=== PATIENT | female | born 1995 | race Caucasian/White ===

== ENCOUNTER 2019-06-21 09:23 | Emergency (ER) | payer OTHER ==
[~2019-06-21] VITALS: Ht 149.9 cm; Wt 50.9 kg
[2019-06-21 09:31] VITALS: BP 127/85; TEMP 98.1
[2019-06-21 09:57] LABS: COLLECTION METHOD CLEAN CATCH
[2019-06-21 10:14] LABS: MUCOUS Present /lpf; PH 5 (5-8); URINE APPEARANCE Hazy; URINE BACTERIA None Seen /hpf; URINE BILIRUBIN Negative (NEGATIVE); URINE BLOOD Negative (NEGATIVE); URINE COLOR Yellow; URINE GLUCOSE Negative (NEGATIVE); URINE KETONE 2+ (NEGATIVE); URINE LEUKOCYTE ESTERASE Negative (NEGATIVE); URINE NITRATE Negative (NEGATIVE); URINE PROTEIN(semi-quant) Negative (NEGATIVE); URINE RBC 0-2 /hpf; URINE UROBILINOGEN Negative (NEGATIVE)
[2019-06-21 12:00] VITALS: PULSE 74
== END 2019-06-21 12:00 | disposition home or self-care (01) ==
LOC: COL.ER 09:23
PROVIDERS: Physician Assistant
DX: R10.2 Pelvic and perineal pain (principal)